=== PATIENT | female | born 1985 | race Caucasian/White ===

== ENCOUNTER 2024-07-31 00:20 | Emergency (ER) | payer SELFPAY ==
[~2024-07-31] VITALS: Ht 154.9 cm; Wt 120.0 kg
[2024-07-31 00:26] VITALS: TEMP 98.1; O2SAT 98
[2024-07-31 00:40] VITALS: BP 121/73; PULSE 113; RESP 20; O2SAT 98
== END 2024-07-31 01:33 | disposition home or self-care (01) ==
LOC: ER 00:20
DX: I95.9 Hypotension, unspecified (principal); R55 Syncope and collapse; E11.9 Type 2 diabetes mellitus without complications; I10 Essential (primary) hypertension; I25.2 Old myocardial infarction
CPT/HCPCS: 82962; 99283; Z7610